=== PATIENT | female | born 1995 | race Hispanic/Latino ===

== ENCOUNTER 2024-12-23 18:45 | Emergency (ER) | payer BC ==
[~2024-12-23] VITALS: Ht 167.6 cm; Wt 87.5 kg
--- NOTE | 2024-12-23 18:57 | ERN ---
ED Note History of Present Illness Stated Complaint: ALLERGIC REACTION Chief Complaint: Allergic Reaction Time Seen by MD: 18:47 Dictation: PATIENT IS A 29-YEAR-OLD FEMALE HERE WITH SWELLING OF HER LIPS AND RASH AFTER EATING SHRIMP 30 MINUTES PRIOR TO ARRIVAL. SHE STATES SHE IS HAVING MILD SOB, NO VOICE CHANGES. STATES SHE HAS EATEN SHRIMP IN THE PAST WITHOUT ANY DIFFICULTY DENIES ANY HISTORY Allergies: Coded Allergies: No Known Drug Allergies (Unverified Allergy, Unknown, 12/23/24) Past Medical History History: Not Applicable RN Note Reviewed/Agreed w/PFSH: Yes Review of System Dictation CONSTITUTIONAL: NEGATIVE EXCEPT FOR HPI HEAD/FACE: NEGATIVE EXCEPT FOR HPI EENT: NEGATIVE EXCEPT FOR HPI ANGIOEDEMA RESPIRATORY: NEGATIVE EXCEPT FOR HPI GASTROINTESTINAL/ABDOMINAL: NEGATIVE EXCEPT FOR HPI GENITOURINARY: NEGATIVE EXCEPT FOR HPI MUSCULOSKELETAL: NEGATIVE EXCEPT FOR HPI INTEGUMENTARY: NEGATIVE EXCEPT FOR HPI URTICARIAL RASH NEUROLOGICAL/PSYCH: NEGATIVE EXCEPT FOR HPI HEMATOLOGIC/LYMPHATIC: NEGATIVE EXCEPT FOR HPI ALL SYSTEMS NEGATIVE, EXCEPT NOTED ABOVE. 13 POINT REVIEW OF SYSTEMS ASSESSED AND ALL NEGATIVE EXCEPT FOR ABOVE. Initial Vital Sign VS Vital Signs Date Time Temp Pulse Resp B/P (MAP) Pulse Ox O2 Delivery O2 Flow Rate FiO2 12/23/24 18:52 98.4 109 20 146/105 99 Room Air 0 12/23/24 19:48 21 Physical Exam Dictation VITAL SIGNS REVIEWED GENERAL APPEARANCE: ALERT, ORIENTED X 3, MODERATE ACUTE DISTRESS, WELL DEVELOPED, NOURISHED. HEAD AND FACE: NON-TRAUMATIC. EYES: PERRL, PINK CONJUNCTIVAS, EYELID NO TRAUMA, ANTERIOR CHAMBER WITH ARCUS SENILIS. EARS: PINNAS INTACT AND NO SIGNS OF TRAUMA OR ERYTHEMA EAR CANALS CLEAR AND NO DISCHARGE TM NO ERYTHEMA NOSE: NO DISCHARGE, NO BLEEDING. OROPHARYNX: MOUTH NORMAL, TONGUE PINK, VOICE IS CLEAR, ANGIOEDEMA OF THE LIPS PHARYNX CLEAR,NO ERYTHEMA, TONSILS NO EXUDATES, NO ABSCESSES NOTED, MUCOUS MEMBRANE MOIST NECK: SUPPLE, NON-TENDER, NO THYROMEGALY, NO MASSES, NO JVD, NO BRUITS BREAST:DEFERRED CHEST:NO TENDERNESS, NO CREPITUS, NO PARADOXICAL MOVEMENT, NO RETRACTIONS LUNGS:CLEAR, WELL-VENTILATED, SYMMETRIC, NO RALES, NO WHEEZING, NO RHONCHI, NO STRIDOR, GOOD BREATH SOUNDS BILATERALLY HEART: REGULAR RATE, REGULAR RHYTHM, NO MURMUR, NO GALLOPS VASCULAR: NO PERIPHERAL EDEMA, ABDOMEN: SOFT, POSITIVE BOWEL SOUNDS, NONDISTENDED, NO GUARDING, NONTENDER, NO REBOUND, NO MASSES NO HEPATOMEGALY, NO SPLENOMEGALY, NO HUTTON'S SIGN, NO HERNIAS. RECTAL: DEFERRED GENITAL: DEFERRED NEUROLOGICAL: NORMAL SPEECH, MOTOR FUNCTION INTACT, SENSORY FUNCTION INTACT MUSCULOSKELETAL: NECK NONTENDER, FULL RANGE OF MOTION, BACK NONTENDER, FULL RANGE OF MOTION, EXTREMITIES: NONTENDER, FULL RANGE OF MOTION SKIN: COLOR PINK, DRY, NO TURGOR, DIFFUSE URTICARIAL RASH. LYMPHATIC: DEFERRED Results (Laboratory/Radiology) Labs Reviewed?: Yes ED Course ED Course Orders Procedure Category Date Status Time Dexamethasone 4mg/Ml PHA 12/23/24 Complete 1ml Vial (Dexametha 19:00 Diphenhydramine Hcl PHA 12/23/24 Complete (Benadryl Inj) 19:00 Famotidine 20mg Tab PHA 12/23/24 Complete (Pepcid 20mg Tab) 19:00 Current Medications Medications (Trade) Dose Ordered Sig/Irma Route PRN Reason Start Time Stop Time Status Last Admin Dose Admin Dexamethasone Sodium Phosphate (dexaMETHasone 4MG/ML 1ML VIAL) 8 mg ONCE ONCE IM 12/23/24 19:00 12/23/24 19:01 DC 12/23/24 19:22 Diphenhydramine HCl (BENAdryl INJ) 50 mg ONCE ONCE IM 12/23/24 19:00 12/23/24 19:01 DC 12/23/24 19:23 Famotidine (Pepcid 20mg Tab) 40 mg ONCE ONCE PO 12/23/24 19:00 12/23/24 19:01 DC 12/23/24 19:22 Vital Signs Date Time Temp Pulse Resp B/P (MAP) Pulse Ox O2 Delivery O2 Flow Rate FiO2 12/23/24 19:48 98.4 88 18 132/65 99 Room Air* 0 21 12/23/24 18:52 98.4 109 20 146/105 99 Room Air 0 1955/RASHES RASHES RESOLVED Medical Decision Making MDM MEDICAL DISCHARGE MAKING BASED ON EMPIRIC TREATMENT FOR ACUTE ALLERGIC REACTION LIKELY TO SHELLFISH OR IODINE PATIENT BETTER AFTER TREATMENT DISCHARGED HOME WITH BENADRYL TOLD TO AVOID TRIMMED BENADRYL CLEARED BY HER DOCTOR DX & DISP Disposition: Discharge Departure Impression: Primary Impression: Acute allergic reaction Additional Impressions: Urticarial rash, Angioedema of lips Condition: Stable Scripts Diphenhydramine HCl (Benadryl) 50 Mg Cap 50 MG PO Q6HPRN PRN for ITCHING/RASH, #30 CAP Prov: LASHAE SCHWARTZ ENVIRONMENTAL HEALTH SAFETY ENGINEER 12/23/24 Additional Instructions: FOLLOW-UP WITH PRIMARY CARE PROVIDER IN 1 TO 2 DAYS. TAKE MEDICATIONS DIRECTED HERE IN THE EMERGENCY ROOM. OKAY TO CONTINUE HOME MEDICATIONS UNLESS OTHERWISE DISCUSSED DURING YOUR VISIT IN THE EMERGENCY ROOM TODAY. RETURN TO YOUR NEAREST EMERGENCY ROOM IF SYMPTOMS WORSEN OR IF THERE IS NO IMPROVEMENT. C ALL 911 IF YOU NEED IMMEDIATE ASSISTANCE. TAKE TYLENOL OR MOTRIN [id number] NEEDED AND IF NO CONTRAINDICATIONS ARE PRESENT. INCREASE ORAL HYDRATION. A WOUND CULTURE OR URINE CULTURE WAS ORDERED HERE IN THE EMERGENCY ROOM DEPARTMENT PLEASE FOLLOW-UP WITH PRIMARY CARE PROVIDER AND ADVISE THEM TO GET REPEAT PORTS FROM OUR FACILITY. IF YOU HAD ANY CARLO WRAP/SPLINTS THAT WERE APPLIED HERE, PLEASE DO NOT REMOVE THEM UNTIL YOU SEE YOUR PRIMARY CARE OR SPECIALTY. AVOID THE TRIMMED TODAY UNTIL CLEARED BY YOUR DOCTOR. TAKE BENADRYL 50 MG EVERY 6 HOURS FOR THREE MORE DOSES. Time of Disposition: 19:57 I have reviewed the case, and I agree with, Diagnosis and Plan LASHAE SCHWARTZ NP December 23, 2024 18:57
--- NOTE | 2024-12-23 19:15 | NUR ---
ASSUMED PT CARE
[2024-12-23] MEDS: dexaMETHasone SOD PHOSPHATE 4 MG/ML 1ML VIAL IM ONE (19:22)
[2024-12-23] MEDS: FAMOTIDINE 20MG TAB PO ONE (19:22)
[2024-12-23] MEDS: DiphenhydrAMINE HCL 50 MG/ML VIAL IM ONE (19:23)
[2024-12-23 19:48] VITALS: BP 132/65; PULSE 88; RESP 18; TEMP 98.5; O2SAT 99
[2024-12-23] MEDS ORDERED: DIPH50 PO (19:57)
== END 2024-12-23 20:04 | disposition home or self-care (01) ==
LOC: EDH 18:45
DX: T78.3XXA Angioneurotic edema, initial encounter (principal); X58.XXXA Exposure to other specified factors, initial encounter
CPT/HCPCS: 99284; 96372 ×2; J1100; J1200